=== PATIENT | female | born 2000 | race Caucasian/White ===

== ENCOUNTER 2018-02-26 00:11 | Emergency (ER) | payer BC ==
[2018-02-26] MEDS ORDERED: ONDANSETRON 4 MG/2 ML VIAL IVP ONE (00:14)
[2018-02-26] MEDS ORDERED: NS 1,000 ML IV ONE (00:14)
--- NOTE | 2018-02-26 00:17 | EDPHY ---
H & P Source: Patient, EMS Exam Limitations: Intoxication Time Seen by Provider: 02/26/18 00:14 HPI/ROS: HPI: This is a 18-year-old female who presents with Chief Complaint: Question of seizure versus syncope, alcohol and marijuana intoxication Location: Body Quality: Seizure versus syncope Duration: Prior to arrival Signs and Symptoms:+ transient loss of consciousness, no neck pain, no headache , + nausea, no vomiting, no incontinence Timing: Acute Severity: Moderate Context: Patient is a student at [employer], celebrating her birthday today, presents via EMS with questionable seizure versus syncope. Patient was walking home from the bar to her house on campus when she stumbled in the yard and fell forward hitting the front of her head on the grass. Witnesses then question some jerking movements of her body. Patient reports that she has no neck pain, dizziness, nausea, vomiting. She admits to drinking 2 glasses of wine this evening and smoking marijuana. Modifying Factors: None Comment: ROS: A comprehensive 10 system review of systems is otherwise negative aside from elements mentioned in the history of present illness. MEDICAL/SURGICAL/SOCIAL HISTORY: Medical history: Generally healthy. Does not take any regular medications. Surgical history: Denies Social history: Student at [employer]. Family history noncontributory. CONSTITUTIONAL: Tearful, intoxicated young adult white female, awake and alert , no obvious distress HEENT: Atraumatic and normocephalic, PERRL, EOMI. Nares patent; no rhinorrhea; no nasal mucosal edema. Tympanic membranes clear. Oropharynx clear, no exudate and moist pink mucosa. Airway patent. No lymphadenopathy. No meningismus. Cardiovascular: Normal S1/S2, regular rate, regular rhythm, without murmur rub or gallop. PULMONARY/CHEST: Symmetrical and nontender. Clear to auscultation bilaterally. Good air movement. No accessory muscle usage. ABDOMEN: Soft, nondistended, nontender, no rebound, no guarding, no peritoneal signs, no masses or organomegaly. No CVAT. EXTREMITIES: 2/2 pulses, strength 5/5, no deformities, no clubbing, no cyanosis or edema. NEUROLOGICAL: no focal neuro deficits. GCS 15. Words are slightly slurred. SKIN: Warm and dry, no erythema. no rash. Good capillary refill. ([place]) Constitutional: Initial Vital Signs Temperature (C) 36.5 C 02/26/18 00:13 Heart Rate 86 02/26/18 00:13 Respiratory Rate 16 02/26/18 00:13 Blood Pressure 113/62 02/26/18 00:13 O2 Sat (%) 100 02/26/18 00:13 O2 Delivery Mode Room Air Allergies/Adverse Reactions: No Known Allergies Allergy (Unverified 02/26/18 00:15) Home Medications: Medication Instructions Recorded NK [No Known Home Meds] 02/26/18 Medical Decision Making - Diagnostics EKG Interpretation: 12 lead EKG: Indication: Syncope versus seizure Rhythm: Normal sinus rhythm, rate of 79 beats per minute [place]: Normal Intervals: Normal QRS: Normal ST segments: Normal INTERPRETATION: No acute ischemic changes, no arrhythmias The 12 lead EKG was interpreted by myself and with attending. (Nayely Cerna) Imaging Results: Imaging Impressions Head CT 02/26/18 00:15 Impression: 1. No acute intracranial hemorrhage or fracture. 2. No mass, edema, or etiology for possible seizure. The study was performed as an emergency on-call case and discussed by telephone with Nayely Cerna at 12:38 AM. The final interpretation is concordant with the original communication. ED Course/Re-evaluation: 0252: Patient re-evaluated this time is resting comfortably. She is eager to be discharged home. She states she feels much better. She ambulated well throughout the emergency room with any dizziness or lightheadedness. She p.o. Challenge well. Workup here in emergency room is unremarkable. Return precautions discussed with her. (Chris Menon) Vital signs reviewed and stable upon arrival. Given 1 L normal saline and IV Zofran [address] scan ordered due to intoxication and hitting head. Laboratory studies including ethanol level ordered. EKG my read shows normal sinus rhythm with no acute ischemic changes, no arrhythmias. 0030: End of shift. Signed over to Dr. Menon pending laboratory study results , head CT scan results and final disposition. I suspect that patient will be discharged home with follow-up as needed when she is sober and able to ambulate without ataxia. 0040: Called by Dr. Dodosn who reports that head CT scan shows no acute intracranial process. This patient was seen under the supervision of my secondary supervising physician. I evaluated care for this patient independently. Discussed this patient with Dr. Menon. (Nayely Cerna) Differential Diagnosis: Altered mental status including but not limited to hypoglycemia, infectious process, electrolyte abnormality, head injury and intoxicants. (Nayely Cerna) - Data Points Laboratory Results: Laboratory Results 02/26/18 00:10 02/26/18 00:10 Medications Given: Discontinued Medications Sodium Chloride (Ns) 1,000 mls @ 0 mls/hr IV ONCE ONE; Wide Open PRN Reason: Protocol Stop: 02/26/18 00:15 Last Admin: 02/26/18 00:25 Dose: 1,000 mls Ondansetron HCl (Zofran) 4 mg IVP EDNOW ONE Stop: 02/26/18 00:15 Last Admin: 02/26/18 00:27 Dose: Not Given Departure - Departure Disposition: Home, Routine, Self-Care Clinical Impression: Marijuana use Alcohol intoxication Qualifiers: Complication of substance-induced condition: uncomplicated Qualified Code(s): F10.920 - Alcohol use, unspecified with intoxication, uncomplicated Condition: Good Instructions: Alcohol Intoxication (ED), Medicinal Use of Cannabis (ED) Additional Instructions: Rest as much as possible until you are feeling better. Consume a minimum of 8-10 glasses of water or electrolyte fluid replacement drinks that include Gatorade, Powerade, Pedialyte. Refrain from drinking alcohol excessively and using marijuana at the same time. [facility]. Referrals: DYLAN PRUITT ,. [Clinic] - 5-7 days, call for appt.
[2018-02-26 00:27] LABS: PLATELET COUNT 333 10^3/uL (150-400)
[2018-02-26 03:00] VITALS: BP 108/68
--- NOTE | 2018-02-27 11:18 | CPEKG ---
Test Reason : OPEN Blood Pressure : / mmHG Vent. Rate : 079 BPM Atrial Rate : 080 BPM P-R Int : 172 ms QRS Dur : 082 ms QT Int : 369 ms P-R-T Axes : 066 046 049 degrees QTc Int : 424 ms Sinus rhythm Low voltage, precordial leads Confirmed by Negrita Connell ([id number]) on 02/27/2018 11:17:34 AM Referred By: Confirmed By:Negrita Connell
== END 2018-02-26 03:00 | disposition home or self-care (01) ==
DX: F10.920 Alcohol use, unspecified with intoxication, uncomplicated (principal); E86.9 Volume depletion, unspecified; F12.920 Cannabis use, unspecified with intoxication, uncomplicated
CPT/HCPCS: G0480; J2405

== ENCOUNTER → 2018-03-23 | Outpatient (CLI) | payer BC | LOC: FIMAGING 10:24 | PROVIDERS: ATTEND Psychiatry & Neurology Neurology | DX: G40.909 Epilepsy, unspecified, not intractable, without status epilepticus (principal) ==

== ENCOUNTER → 2018-07-18 | Outpatient (CLI) | payer OTHER ==
--- NOTE | 2018-07-19 06:45 | CPEEG ---
[f rep st] ELECTROENCEPHALOGRAM 4-HOUR VIDEO EEG DATE OF STUDY: 07/18/2018 INTERPRETATION: This 4-hour video EEG recording is abnormal due to the presence of generalized atypical spike and wave discharges and generalized polyspike and wave discharges. 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 The patient did not have any clinical events during the video EEG monitoring session. I contacted the patient directly about the abnormal results of this study and gave her treatment recommendations today. REPORT: This 4-hour video EEG contains 10 Hz alpha activity to the posterior head regions. The background activity was normal and symmetric. The primary feature of this recording was the presence of generalized atypical spike and wave discharges and generalized polyspike and wave discharges. There was additional activation with photic stimulation (photoparoxysmal response). She also had some activation of generalized spike and wave discharges with hyperventilation. These discharges could be fairly symmetric at times. At other times, they had a more irregular morphology and occurred at a frequency of 3-4 Hz. She also had generalized polyspike and wave discharges. These occurred at rest and continued during drowsiness and sleep. There were no clinical events recorded during the video EEG monitoring session. The patient was contacted regarding the study today and given treatment recommendations regarding the abnormal findings. /[id number]/MODL MTDD
== END ==
LOC: FCPNEURO 08:06
PROVIDERS: ATTEND Psychiatry & Neurology Neurology
DX: R40.20 Unspecified coma (principal); R94.01 Abnormal electroencephalogram [EEG]